=== PATIENT | female | born 1980 | race Caucasian/White ===

== ENCOUNTER 2017-03-25 23:48 | Emergency (ER) | payer MEDICAID ==
[~2017-03-25] VITALS: Ht 157.5 cm; Wt 47.7 kg
[2017-03-26] MEDS ORDERED: TRIA15CR61 TP (00:03)
[2017-03-26 00:09] VITALS: BP 149/100
== END 2017-03-26 00:10 | disposition home or self-care (01) ==
LOC: ER 23:49
DX: L25.5 Unspecified contact dermatitis due to plants, except food (principal); F17.200 Nicotine dependence, unspecified, uncomplicated; F12.10 Cannabis abuse, uncomplicated; Z88.0 Allergy status to penicillin; Z79.899 Other long term (current) drug therapy; Z91.09 Other allergy status, other than to drugs and biological substances
CPT/HCPCS: 99283